=== PATIENT | male | born 1940 | race Caucasian/White ===

== ENCOUNTER 2018-11-02 02:52 | Inpatient (IN) | payer MEDICARE ==
--- NOTE | 2018-11-02 03:05 | ED ---
Chest Pain HPI - General Chief Complaint: Chest Pain Stated Complaint: Chest Pain Time Seen by Provider: 11/02/18 03:02 Source: patient Limitations: no limitations - History of Present Illness Initial Comments: Josias Orozco is a pleasant 77 yo male with PMH of CAD s/p CABG x2 vessels >10 years ago. Patient states that yesterday he was in his usual state of health. At approximately 1 AM he woke from sleeping with a sharp pain in his left chest. Patient reports he took 4 ibuprofen for the pain which improved the pain slightly answered to his blood pressure noted that was mildly elevated at which time he decided to come to the ER before she got any worse. Patient reports that he had similar symptoms in June, he developed chest pain and a progressively worsened patient reports that when he arrived at the emergency department he had a blood pressure of greater than 2:30 systolic and was advised he may be having a heart attack. Patient reports that once his pain was controlled his blood pressure improved, he subsequently underwent a cardiac cath and was advised that he likely did not have a heart attack. Patient reports that he is continued to be compliant with his home medications including daily aspirin. Patient reports the pain today began without provocation, woke him from sleep, was associated with some mild shortness of breath which has resolved, he's had no cough or recent fevers chills nausea or vomiting. - Related Data Home Medications Medication Instructions Recorded Confirmed Atorvastatin Calcium [Lipitor] 40 mg PO DAILY 01/11/14 05/28/16 Aspirin EC [Ecotrin Low Dose] 81 mg PO DAILY 01/23/16 05/28/16 HYDROcodone/APAP 5-325MG [Jefferson 1 tab PO Q4H PRN 05/18/16 05/28/16 5-325] amLODIPine BESYLATE [Norvasc] 5 mg PO DAILY@1800 05/18/16 05/28/16 Previous Rx's Medication Instructions Recorded Enalapril [Vasotec] 20 mg PO HS #0 05/20/16 Isosorbide Mononitrate ER [Imdur] 60 mg PO DAILY #30 tab.er.24h 05/20/16 Metoprolol Tartrate 25 mg PO BID #60 tablet 05/20/16 Gabapentin [Neurontin] 100 mg PO TID #50 cap 05/22/16 HYDROcodone/APAP 7.5-325MG [Jefferson 1 tab PO Q4H PRN #20 tab 05/22/16 7.5-325] valACYclovir HCL [Valtrex] 1,000 mg PO TID #15 tablet 05/22/16 Allergies Allergy/AdvReac Type Severity Reaction Status Date / Time No Known Allergies Allergy Verified 11/02/18 02:59 Review of Systems ROS Statement: Those systems with pertinent positive or pertinent negative responses have been documented in the HPI. ROS Other: All systems not noted in ROS Statement are negative. EKG Findings - EKG Comments: EKG Findings:: EKG was obtained at 3:05 AM, rate of 69 rhythm is sinus there is a normal axis there is a prolonged DC at 276, QRS is 124 QTC is 482 there are no acute ST elevations or depressions or no evidence of acute ischemia or infarction. This is a sinus rhythm with first-degree AV block. Past Medical History Past Medical History: Coronary Artery Disease (CAD), Chest Pain / Angina, CVA/TIA, Hyperlipidemia, Hypertension, Osteoarthritis (OA), Renal Disease Additional Past Medical History / Comment(s): Nephrolithiasis, hematuria, mild renal dysfunction-Dr. Rivera managing, 08/2015 TIA, History of Any Multi-Drug Resistant Organisms: None Reported Past Surgical History: Cardiac Valve Replacement, Coronary Bypass/CABG, Heart Catheterization, Orthopedic Surgery, Tonsillectomy Additional Past Surgical History / Comment(s): 01/2016 penile implant, 08/2015 cardiac cath with no intervention, 2007 mitral/aortic valve replacement with 2 vessel bypass, cystoscopy with stone extraction, lumbar disc sx, colonoscopy, R hand index finger amputation, sinus surgery. Past Anesthesia/Blood Transfusion Reactions: No Reported Reaction Past Psychological History: No Psychological Hx Reported Smoking Status: Never smoker Past Alcohol Use History: None Reported Past Drug Use History: None Reported - Past Family History Father Family Medical History: CVA/TIA Mother Family Medical History: Cancer, Congestive Heart Failure (CHF) Additional Family Medical History / Comment(s): Mother had colon cancer. General Exam - General Exam Comments Initial Comments: Physical Exam GENERAL: Patient is well-developed and well-nourished. Patient is nontoxic and well- hydrated and is in no distress. HENT: Normocephalic, Atraumatic. EYES: PERRL, EOMI PULMONARY: Unlabored respirations. No audible rales rhonchi or wheezing was noted. CARDIOVASCULAR: There is a regular rate and rhythm without any murmurs gallops or rubs. Well-healed sternotomy scar consistent with history of CABG ABDOMEN: Soft and nontender with normal bowel sounds. SKIN: Skin is clear with no lesions or rashes and otherwise unremarkable. : Deferred NEUROLOGIC: Patient is alert and oriented x3. Moving all extremities spontaneously MUSCULOSKELETAL: Normal extremities with adequate strength and full range of motion. No lower extremity swelling or edema. No calf tenderness. Partial amputation of right index finger well-healed PSYCHIATRIC: Normal psychiatric evaluation. Limitations: no limitations Limitations: no limitations Course Vital Signs 11/02/18 11/02/18 11/02/18 02:55 03:09 04:00 Temperature 97.5 F L Pulse Rate 69 61 Respiratory 16 18 Rate Blood Pressure 167/90 O2 Sat by Pulse 98 96 95 Oximetry 11/02/18 05:00 Temperature Pulse Rate 55 L Respiratory 13 Rate Blood Pressure 143/80 O2 Sat by Pulse 95 Oximetry Chest Pain ABUNDIO - ABUNDIO Ferrara is a 77-year-old gentleman with a history of CAD status post CABG who presents to the emergency department today for evaluation of anal woke him from sleep EKG appears nonischemic given the risk factors for cardiac workup was initiated patient's troponin is elevated review of previous visits indicate the patient has had a mildly elevated troponin the past however this is slightly higher given as the patient will be admitted on a heparin drip for further evaluation by cardiology Heart score - 7 - LIZA Score Age > 65: (1) Yes 3 or more CAD Risk Factors: (1) Yes Aspirin use within the Past 7 Days: (1) Yes Elevated Cardiac Markers: (1) Yes ST Deviation Greater than 0.5mm: (0) No Disposition Clinical Impression: CAD (coronary artery disease), Hx of CABG, S/P AVR, H/O mitral valve repair, NSTEMI (non-ST elevated myocardial infarction) Disposition: ADMITTED IP TO THIS HOSP Condition: Serious Is patient prescribed a controlled substance at d/c from ED?: No
[2018-11-02 03:32] LABS: Basophils % (A) 1 %; Eosinophils # (A) 0.1 k/uL (0-0.7); Eosinophils % (A) 2 %; HCT 40.3 % (39.0-53.0); HGB 13.6 gm/dL (13.0-17.5); Lymphocytes # (A) 1.9 k/uL (1.0-4.8); Lymphocytes % (A) 35 %; MCH 31.8 pg (25.0-35.0); MCHC 33.7 g/dL (31.0-37.0); MCV 94.5 fL (80.0-100.0); Mean Platelet Volume 7.2; Monocytes # (A) 0.4 k/uL (0-1.0); Monocytes % (A) 7 %; Neutrophils # (A) 2.8 k/uL (1.3-7.7); Neutrophils % (A) 52 %; Platelet Count 145 k/uL (150-450); RBC 4.27 m/uL (4.30-5.90); WBC 5.3 k/uL (3.8-10.6)
[2018-11-02 03:51] LABS: Albumin 4.3 g/dL (3.5-5.0); Calcium 9.2 mg/dL (8.4-10.2); Magnesium 2.1 mg/dL (1.6-2.3); Potassium 4.2 mmol/L (3.5-5.1); Total Bilirubin 0.9 mg/dL (0.2-1.3); Total Protein 7.2 g/dL (6.3-8.2)
--- NOTE | 2018-11-02 03:51 | XR ---
EXAM: XR Chest, 2 Views CLINICAL HISTORY: Chest Pain TECHNIQUE: Frontal and lateral views of the chest. COMPARISON: May 28, 2016. FINDINGS: Enlarged cardiac silhouette without evidence of failure or edema. Prosthetic cardiac valve. Tortuous/ectatic thoracic aorta with atherosclerotic disease. Sternotomy wires and mediastinal clips. Low lung volumes with bibasilar atelectasis. No large pleural effusions. Senescent changes. Degenerative changes in the thoracic spine. IMPRESSION: Overall, stable exam. Enlarged cardiac silhouette without edema or failure. Bibasilar atelectasis. No large pleural effusions.
[2018-11-02 03:52] LABS: INR 0.9 (<1.2); Partial Thromboplastin Time 23.1 sec (22.0-30.0); Prothrombin Time 9.9 sec (9.0-12.0)
[2018-11-02] MEDS ORDERED: HEPARIN SODIUM,PORCINE 5,000 UNIT/ML 1 ML VIAL IV PRN (04:33)
[2018-11-02] MEDS ORDERED: NITROGLYCERIN SL TABS 0.4 MG TAB SUBLINGUAL PRN (04:33)
[2018-11-02] MEDS ORDERED: HEPARIN SODIUM,PORCINE 5,000 UNIT/ML 1 ML VIAL IV ONE (04:33)
[2018-11-02] MEDS: HEPARIN SOD,PORK IN 0.45% NACL 25,000 UNIT in 0.45% NACL 1 250ML.BAG IV SCH (05:00)
[2018-11-02] MEDS ORDERED: ASPIRIN 81 MG PO STA (05:21)
[2018-11-02 05:38] LABS: Basophils % (A) 1 %; Eosinophils # (A) 0.1 k/uL (0-0.7); Eosinophils % (A) 2 %; HCT 40.2 % (39.0-53.0); HGB 13.3 gm/dL (13.0-17.5); Lymphocytes # (A) 1.6 k/uL (1.0-4.8); Lymphocytes % (A) 32 %; MCH 31.9 pg (25.0-35.0); MCHC 33.2 g/dL (31.0-37.0); MCV 96.3 fL (80.0-100.0); Mean Platelet Volume 7.5; Monocytes # (A) 0.3 k/uL (0-1.0); Monocytes % (A) 7 %; Neutrophils # (A) 2.8 k/uL (1.3-7.7); Neutrophils % (A) 57 %; Platelet Count 144 k/uL (150-450); RBC 4.17 m/uL (4.30-5.90); RDW 13.9 % (11.5-15.5)
[2018-11-02 05:59] LABS: Partial Thromboplastin Time 63.4 sec (22.0-30.0); Prothrombin Time 10.9 sec (9.0-12.0)
[2018-11-02] MEDS: ATORVASTATIN 40 MG TAB PO SCH (08:45)
[2018-11-02] MEDS: amLODIPine 10 MG TAB PO SCH (08:45)
[2018-11-02] MEDS: METOPROLOL TARTRATE 25 MG TAB PO SCH (08:45)
[2018-11-02] MEDS ORDERED: NON-FORMULARY DRUG (Enalapril 20 MG) PO SCH (09:00)
--- NOTE | 2018-11-02 10:26 | P.HPIM ---
History of Present Illness This is a pleasant 77 years old male with past medical history of coronary artery disease, status post CABG, CVA/TIA, hyperlipidemia, hypertension, osteoarthritis, nephrolithiasis, hematuria, mild renal dysfunction that he follows with Dr. Rivera, status post mitral/aortic valve replacement in 2007, lumbar disc disease. He is a patient of Dr. Dominique. Presents because of chest pain of one-day duration. 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 He had similar chest pain last June further when he had normal cardiac cath in [place]. Also he have some dyspnea but thus been resolved. Currently patient is chest pain-free after starting therapy with heparin drip and aspirin Vitals are stable, somewhat bradycardia. CBC is unremarkable. Creatinine is 1.4, compared to baseline of 1.2-1.5. His troponins are elevated at 0.05 and 0.05. EKG showing sinus rhythm at 69 with first-degree AV block, No significant ST-T changes. Chest x-ray: No CHF. Patient already was started on aspirin and heparin drip Review of Systems CONSTITUTIONAL: No fever, no malaise, no fatigue. HEENT: No recent visual problems or hearing problems. Denied any sore throat. CARDIOVASCULAR: No orthopnea, PND, no palpitations, no syncope. PULMONARY: No shortness of breath, no cough, no hemoptysis. GASTROINTESTINAL: No diarrhea, no nausea, no vomiting, no abdominal pain. Normoactive bowel sounds. NEUROLOGICAL: No headaches, no weakness, no numbness. HEMATOLOGICAL: Denies any bleeding or petechiae. GENITOURINARY: Denies any burning micturition, frequency, or urgency. MUSCULOSKELETAL/RHEUMATOLOGICAL: Denies any joint pain, swelling, or any muscle pain. ENDOCRINE: Denies any polyuria or polydipsia. Past Medical History Past Medical History: Coronary Artery Disease (CAD), Chest Pain / Angina, CVA/TIA, Hyperlipidemia, Hypertension, Osteoarthritis (OA), Renal Disease Additional Past Medical History / Comment(s): Nephrolithiasis, hematuria, mild renal dysfunction-Dr. Rivera managing, 08/2015 TIA, History of Any Multi-Drug Resistant Organisms: None Reported Past Surgical History: Cardiac Valve Replacement, Coronary Bypass/CABG, Heart Catheterization, Orthopedic Surgery, Tonsillectomy Additional Past Surgical History / Comment(s): 01/2016 penile implant, 08/2015 cardiac cath with no intervention, 2007 mitral/aortic valve replacement with 2 vessel bypass, cystoscopy with stone extraction, lumbar disc sx, colonoscopy, R hand index finger amputation, sinus surgery. Past Anesthesia/Blood Transfusion Reactions: No Reported Reaction Past Psychological History: No Psychological Hx Reported Smoking Status: Never smoker Past Alcohol Use History: None Reported Past Drug Use History: None Reported - Past Family History Father Family Medical History: CVA/TIA Mother Family Medical History: Cancer, Congestive Heart Failure (CHF) Additional Family Medical History / Comment(s): Mother had colon cancer. Medications and Allergies Home Medications Medication Instructions Recorded Confirmed Type Atorvastatin Calcium [Lipitor] 40 mg PO DAILY 01/11/14 11/02/18 History Aspirin EC [Ecotrin Low Dose] 81 mg PO DAILY 01/23/16 11/02/18 History Enalapril [Vasotec] 20 mg PO DAILY 11/02/18 11/02/18 History Metoprolol Tartrate 25 mg PO DAILY 11/02/18 11/02/18 History amLODIPine [Norvasc] 10 mg PO DAILY 11/02/18 11/02/18 History Allergies Allergy/AdvReac Type Severity Reaction Status Date / Time No Known Allergies Allergy Verified 11/02/18 07:40 Physical Exam Vitals: Vital Signs Temp Pulse Resp BP Pulse Ox 11/02/18 06:00 56 L 14 123/68 95 11/02/18 05:00 55 L 13 143/80 95 11/02/18 04:00 61 18 95 11/02/18 03:09 96 11/02/18 02:55 97.5 F L 69 16 167/90 98 Intake and Output 11/01/18 11/02/18 11/02/18 22:59 06:59 14:59 Other: Weight 99.79 kg GENERAL: The patient is alert and oriented x3, not in any acute distress. Well developed, well nourished. HEENT: Pupils are round and equally reacting to light. EOMI. No scleral icterus. No conjunctival pallor. Normocephalic, atraumatic. No pharyngeal erythema. No thyromegaly. CARDIOVASCULAR: S1 and S2 present. No murmurs, rubs, or gallops. PULMONARY: Chest is clear to auscultation, no wheezing or crackles. ABDOMEN: Soft, nontender, nondistended, normoactive bowel sounds. No palpable organomegaly. MUSCULOSKELETAL: No joint swelling or deformity. EXTREMITIES: No cyanosis, clubbing, or pedal edema. NEUROLOGICAL: Gross neurological examination did not reveal any focal deficits. SKIN: No rashes. Results CBC & Chem 7: 11/02/18 04:59 11/02/18 03:20 Labs: Abnormal Lab Results - Last 24 Hours (Table) 11/02/18 11/02/18 11/02/18 Range/Units 03:20 03:20 03:20 RBC 4.27 L (4.30-5.90) m/uL Plt Count 145 L (150-450) k/uL APTT (22.0-30.0) sec Chloride 108 H (98-107) mmol/L BUN 30 H (9-20) mg/dL Creatinine 1.41 H (0.66-1.25) mg/dL Troponin I 0.054 H* (0.000-0.034) ng/mL 11/02/18 11/02/18 11/02/18 Range/Units 04:59 04:59 04:59 RBC 4.17 L (4.30-5.90) m/uL Plt Count 144 L (150-450) k/uL APTT 63.4 H (22.0-30.0) sec Chloride (98-107) mmol/L BUN (9-20) mg/dL Creatinine (0.66-1.25) mg/dL Troponin I 0.050 H* (0.000-0.034) ng/mL Assessment and Plan Assessment: Non-STEMI History of coronary artery disease, status post CABG History of mitral and aortic valve replacement Chronic kidney disease, stage III CVA/TIA Hyperlipidemia Essential hypertension History of osteoarthritis History of nephrolithiasis and hematuria History of lumbar disc disease Plan: This is a pleasant 77 years old male who presents because of non-STEMI. Continue with aspirin, heparin drip. And ask for Cardiologic consult. Labs and medication were reviewed.. Continue same treatment. Continue with sy mptomatic treatment. Resume home medication. Monitor lytes and vitals. DVT and GI prophylaxis. Further recommendations of the clinical course of the patient DVT prophylaxis: Subcutaneous heparin GI Prophylaxis: Pepcid PT/OT: Pending Prognosis is guarded
--- NOTE | 2018-11-02 10:40 | P.CRDCN ---
History of Present Illness Consult date: 11/02/18 Chief complaint: Chest pain History of present illness: This is a pleasant 77-year-old gentleman who sees Dr. RERE Arroyo in the office on regular basis with a past medical history significant for coronary artery disease and status post coronary artery bypass grafting with MILLER to LAD, status post aortic valve replacement, mitral valve repair, as well as multiple comorbid conditions, presented to the hospital complaining of chest discomfort. He was in his usual state of health until last night when he was sleeping and the chest discomfort woke him up from sleep. Its a dull kind of discomfort, in the mid of the chest, without any radiation, and without any associated symptoms. The patient was ruled in for acute coronary syndrome. The troponin came in to be slightly abnormal. A similar presentation was in 2015 when a heart catheterization was performed at that point and revealed patent MILLER to LAD without any evidence of any obstructive coronary artery disease. Beside that similar presentation was June 2018 when he was in [place] and presented with chest discomfort and underwent a heart catheterization as well and he was t old that no need for stent at that point. I am going to consider conservative medical approach on him. He I am going to add oral nitrates the current medical regimen. Obtain an echocardiogram was Liss naranjo And follow-up with the patient. No need for any invasive procedure at this point in the absence of any chest pain or chest discomfort and the absence of any ischemic ST or T-wave abnormalities on the EKG. Past Medical History Past Medical History: Coronary Artery Disease (CAD), Chest Pain / Angina, CVA/TIA, Hyperlipidemia, Hypertension, Osteoarthritis (OA), Renal Disease Additional Past Medical History / Comment(s): Nephrolithiasis, hematuria, mild renal dysfunction-Dr. Rivera managing, 08/2015 TIA, History of Any Multi-Drug Resistant Organisms: None Reported Past Surgical History: Cardiac Valve Replacement, Coronary Bypass/CABG, Heart Catheterization, Orthopedic Surgery, Tonsillectomy Additional Past Surgical History / Comment(s): 01/2016 penile implant, 08/2015 cardiac cath with no intervention, 2007 mitral/aortic valve replacement with 2 vessel bypass, cystoscopy with stone extraction, lumbar disc sx, colonoscopy, R hand index finger amputation, sinus surgery. Past Anesthesia/Blood Transfusion Reactions: No Reported Reaction Past Psychological History: No Psychological Hx Reported Smoking Status: Never smoker Past Alcohol Use History: None Reported Past Drug Use History: None Reported - Past Family History Father Family Medical History: CVA/TIA Mother Family Medical History: Cancer, Congestive Heart Failure (CHF) Additional Family Medical History / Comment(s): Mother had colon cancer. Medications and Allergies Home Medications Medication Instructions Recorded Confirmed Type Atorvastatin Calcium [Lipitor] 40 mg PO DAILY 01/11/14 11/02/18 History Aspirin EC [Ecotrin Low Dose] 81 mg PO DAILY 01/23/16 11/02/18 History Enalapril [Vasotec] 20 mg PO DAILY 11/02/18 11/02/18 History Metoprolol Tartrate 25 mg PO DAILY 11/02/18 11/02/18 History amLODIPine [Norvasc] 10 mg PO DAILY 11/02/18 11/02/18 History Allergies Allergy/AdvReac Type Severity Reaction Status Date / Time No Known Allergies Allergy Verified 11/02/18 07:40 Physical Exam Vitals: Vital Signs Temp Pulse Pulse Resp BP BP Pulse Ox 11/02/18 08:30 97.0 F L 60 18 140/85 95 11/02/18 06:00 56 L 14 123/68 95 11/02/18 05:00 55 L 13 143/80 95 11/02/18 04:00 61 18 95 11/02/18 03:09 96 11/02/18 02:55 97.5 F L 69 16 167/90 98 Intake and Output 11/01/18 11/02/18 11/02/18 22:59 06:59 14:59 Output Total 350 Balance -350 Output: Urine 350 Other: Voiding Method Toilet Weight 99.79 kg - Constitutional General appearance: no acute distress - Respiratory Respiratory: bilateral: CTA - Cardiovascular Rhythm: regular Heart sounds: normal: S1, S2 Abnormal Heart Sounds: systolic murmur Results 11/02/18 04:59 11/02/18 03:20 Cardiac Enzymes 11/02/18 11/02/18 11/02/18 Range/Units 03:20 03:20 04:59 AST 27 (17-59) U/L Troponin I 0.054 H* 0.050 H* (0.000-0.034) ng/mL Coagulation 11/02/18 11/02/18 Range/Units 03:20 04:59 PT 9.9 10.9 (9.0-12.0) sec APTT 23.1 63.4 H (22.0-30.0) sec CBC 11/02/18 11/02/18 Range/Units 03:20 04:59 WBC 5.3 5.0 (3.8-10.6) k/uL RBC 4.27 L 4.17 L (4.30-5.90) m/uL Hgb 13.6 13.3 (13.0-17.5) gm/dL Hct 40.3 40.2 (39.0-53.0) % Plt Count 145 L 144 L (150-450) k/uL Comprehensive Metabolic Panel 11/02/18 Range/Units 03:20 Sodium 140 (137-145) mmol/L Potassium 4.2 (3.5-5.1) mmol/L Chloride 108 H (98-107) mmol/L Carbon Dioxide 23 (22-30) mmol/L BUN 30 H (9-20) mg/dL Creatinine 1.41 H (0.66-1.25) mg/dL Glucose 86 (74-99) mg/dL Calcium 9.2 (8.4-10.2) mg/dL AST 27 (17-59) U/L ALT 23 (21-72) U/L Alkaline Phosphatase 118 (38-126) U/L Total Protein 7.2 (6.3-8.2) g/dL Albumin 4.3 (3.5-5.0) g/dL Current Medications Generic Name Dose Route Start Last Admin Trade Name Freq PRN Reason Stop Dose Admin Amlodipine Besylate 10 mg 11/02/18 09:00 11/02/18 08:45 Norvasc PO 10 mg DAILY [facility] Administration Aspirin 325 mg 11/03/18 09:00 Aspirin PO DAILY [facility] Atorvastatin Calcium 40 mg 11/02/18 09:00 11/02/18 08:45 Lipitor PO 40 mg DAILY [facility] Administration Heparin Sodium (Porcine) 0 unit 11/02/18 04:33 Heparin IV PER PROTOCOL PRN Low PTT Protocol Heparin Sodium/Sodium Chloride 250 mls @ 10 mls/hr 11/02/18 04:45 11/02/18 05:00 25,000 unit/ Sodium Chloride IV 1,000 units/hr .Q24H [facility] 10 mls/hr Administration Protocol Metoprolol Tartrate 25 mg 11/02/18 09:00 11/02/18 08:45 Lopressor PO 25 mg DAILY [facility] Administration Nitroglycerin 0.4 mg 11/02/18 04:33 Nitrostat SUBLINGUAL Q5M PRN Chest Pain Intake and Output 11/01/18 11/02/18 11/02/18 22:59 06:59 14:59 Output Total 350 Balance -350 Output: Urine 350 Other: Voiding Method Toilet Weight 99.79 kg 11/02/18 04:59 11/02/18 03:20 Assessment and Plan Assessment: Assessment #1 atypical chest discomfort #2 mildly abnormal cardiac enzymes #3 CAD and prior CABG #4 status post aortic valve replacement #5 status post mitral valve repair Plan #1 consider conservative medical approach #2 add oral nitrates to the current medical regimen #3 obtain an echocardiogram was Doppler #4 follow-up with the patient
--- NOTE | 2018-11-02 13:37 | ECHOF ---
Referral Reason: MEASUREMENTS -------- HEIGHT: 175.3 cm WEIGHT: 99.8 kg BP: RVIDd: 3.4 cm (< 3.3) IVSd: 2.0 cm (0.6 - 1.1) LVIDd: 2.6 cm (3.9 - 5.3) LVPWd: 1.9 cm (0.6 - 1.1) IVSs: 2.2 cm LVIDs: 1.7 cm LVPWs: 2.0 cm LAESV Index (A-L): 45.05 ml/m Ao Diam: 3.6 cm (2.0 - 3.7) AV Cusp: 1.5 cm (1.5 - 2.6) LA Diam: 4.1 cm (2.7 - 3.8) MV EXCURSION: 7.983 mm (> 18.000) MV EF SLOPE: 17 mm/s (70 - 150) EPSS: 0.6 cm MV E Gio: 1.32 m/s MV DecT: 407 ms MV A Gio: 1.25 m/s MV E/A Ratio: 1.06 AV maxP.99 mmHg AV meanP.69 mmHg RAP: 5.00 mmHg RVSP: 31.78 mmHg FINDINGS -------- Resting bradycardia (HR<60bpm). This was a technically good study. The left ventricular size is normal. There is severe concentric left ventricular hypertrophy. Ove rall left ventricular systolic function is normal with, an EF between 55 - 60 %. The right ventricle is mildly enlarged. LA is severely dilated >40 ml/m2 The right atrial size is normal. Interatrial and interventricular septum intact. Peak/mean gradient across the Aortic Valve is 52.99mmHg / 30.69mmHg. 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 The mitral valve leaflets are mildly thickened. Mild mitral regurgitation is present. Mitral ring annulloplasty is in place. Mild tricuspid regurgitation present. The right ventricular systolic pressure, as measured by Doppl er, is 31.78mmHg. There is no pulmonic regurgitation present. The aortic root size is normal. Normal inferior vena cava with normal inspiratory collapse consistent with estimated right atrial pre ssure of 5 mmHg. There is no pericardial effusion. CONCLUSIONS -------- 1. Resting bradycardia (HR<60bpm). 2. This was a technically good study. 3. The left ventricular size is normal. 4. There is severe concentric left ventricular hypertrophy. 5. Overall left ventricular systolic function is normal with, an EF between 55 - 60 %. 6. The right ventricle is mildly enlarged. 7. LA is severely dilated >40 ml/m2 8. The right atrial size is normal. 9. Interatrial and interventricular septum intact. 10. Peak/mean gradient across the Aortic Valve is 52.99mmHg / 30.69mmHg. 11. 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 12. The mitral valve leaflets are mildly thickened. 13. Mild mitral regurgitation is present. 14. Mitral ring annulloplasty is in place. 15. Mild tricuspid regurgitation present. 16. The right ventricular systolic pressure, as measured by Doppler, is 31.78mmHg. 17. There is no pulmonic regurgitation present. 18. The aortic root size is normal. 19. Normal inferior vena cava with normal inspiratory collapse consistent with estimated right atrial pressure of 5 mmHg. 20. There is no pericardial effusion. [employer] CULTURIST: Nicole Fermin [facility]
[2018-11-02] MEDS ORDERED: traMADol 50 MG TAB PO STA (20:28)
[2018-11-03] MEDS: PANTOPRAZOLE 40 MG/10 ML VIAL IVP SCH ×2 (00:32→07:55)
[2018-11-03 02:58] LABS: Cholesterol 145 mg/dL (<200); HDL Cholesterol 41 mg/dL (40-60); LDL Cholesterol,Calculated 86 mg/dL (0-99); Triglycerides 89 mg/dL (<150)
[2018-11-03] MEDS: HEPARIN SOD,PORK IN 0.45% NACL 25,000 UNIT in 0.45% NACL 1 250ML.BAG IV SCH (05:58)
[2018-11-03] MEDS: amLODIPine 10 MG TAB PO SCH (07:55)
[2018-11-03] MEDS: ATORVASTATIN 40 MG TAB PO SCH (07:55)
[2018-11-03] MEDS: METOPROLOL TARTRATE 25 MG TAB PO SCH (07:55)
[2018-11-03] MEDS: ISOSORBIDE MONONITRATE ER 30 MG TAB.ER.24H PO SCH (07:55)
[2018-11-03] MEDS: ASPIRIN 325 MG TAB PO SCH (07:55)
--- NOTE | 2018-11-03 12:21 | P.PN ---
Subjective Progress Note Date: 11/03/18 Principal diagnosis: Atypical chest pain This is a pleasant 77-year-old gentleman who sees Dr. RERE Arroyo in the office on regular basis with a past medical history significant for coronary artery disease and status post coronary artery bypass grafting with MILLER to LAD, status post aortic valve replacement, mitral valve repair, as well as multiple comorbid conditions, presented to the hospital complaining of chest discomfort. He was in his usual state of health until last night when he was sleeping and the chest discomfort woke him up from sleep. Its a dull kind of discomfort, in the mid of the chest, without any radiation, and without any associated symptoms. The patient was ruled in for acute coronary syndrome. The troponin came in to be slightly abnormal. A similar presentation was in 2015 when a heart catheterization was performed at that point and revealed patent MILLER to LAD without any evidence of any obstructive coronary artery disease. Beside that similar presentation was June 2018 when he was in [place] and presented with chest discomfort and underwent a heart catheterization as well and he was told that no need for stent at that point. On follow-up with the patient today, he still have atypical but very mild chest discomfort. Yesterday I did add oral nitrates to her current medical regimen. The echocardiogram revealed normal LV function. He stated that he does have an abdominal aortic aneurysm and he is quite concerned about it. I am going to obtain a CT scan of the abdomen and pelvis without contrast. Objective - Vital Signs Vital signs: Vital Signs Temp 96.6 F L 11/03/18 08:00 Pulse 65 11/03/18 08:00 Resp 16 11/03/18 08:00 BP 144/66 11/03/18 08:00 Pulse Ox 93 L 11/03/18 08:00 Intake & Output 11/02/18 11/03/18 11/03/18 18:59 06:59 18:59 Intake Total 438 172.0 230 Output Total 600 Balance -162 172.0 230 Weight 98.5 kg Intake: Intake, IV Titration 78 172.0 Amount Heparin Sod,Pork in 0.45% 78 172.0 NaCl 25,000 unit In 0.45 % NaCl 1 250ml.bag @ 10 mls/hr IV .Q24H [facility] Rx#: [id number] Oral 360 230 Output: Urine 600 Other: Voiding Method Toilet Toilet # Voids 1 1 - Constitutional General appearance: Present: no acute distress - Respiratory Respiratory: bilateral: CTA - Cardiovascular Rhythm: regular Heart sounds: normal: S1, S2 Abnormal Heart Sounds: Present: systolic murmur - Labs CBC & Chem 7: 11/02/18 04:59 11/02/18 03:20 Labs: Abnormal Lab Results - Last 24 Hours (Table) 11/02/18 11/02/18 Range/Units 11:44 19:05 APTT 43.3 H 65.3 H (22.0-30.0) sec Assessment and Plan Assessment: Assessment #1 atypical chest discomfort #2 mildly abnormal cardiac enzymes #3 CAD and prior CABG #4 status post aortic valve replacement #5 status post mitral valve repair Plan #1 consider conservative medical approach #2 obtain a computed tomography scan of the abdomen and pelvis #3 the patient can be discharged home.
--- NOTE | 2018-11-03 13:52 | CT ---
EXAMINATION TYPE: CT abdomen pelvis wo con DATE OF EXAM: 11/03/2018 COMPARISON: NONE HISTORY: AAA CT DLP: 819.5 mGycm Automated exposure control for dose reduction was used. FINDINGS: There is some dependent atelectasis in the dependent portions of the lungs. There is no ple ural or pericardial fluid. The heart is enlarged. There is calcification of the mitral annulus as wel l as coronary arteries. There is a partial eventration of the right hemidiaphragm. There is colonic interposition on the righ t. The liver is enlarged measuring 20 cm. The spleen and gallbladder are normal. Both adrenal glands are normal. There is a 2 mm, nonobstructing calculus in the anterior lower pole calyx of the right kidney. There is a larger, 1.5 cm nonobstructing stone in the lower pole of the left kidney. Limited views of the pancreas are unremarkable. There is moderate atheromatous calcification of the visualized arterial tree. There is no evidence of an aortic aneurysm. There is no evidence of an iliac aneurysm. There is no significant retroperitone al, iliac or inguinal adenopathy. There is a penile reservoir within the pelvis. The bladder is not distended. There is no significant diverticular change and there is no radiographic evidence of diverticulitis. The appendix is normal. Small bowel loops are normal in caliber. There is no free air and no free fluid identified. There are sclerotic foci in both femoral heads, likely representing bone islands. There is degenerati ve change in the lower lumbar facets there is hypertrophic spondylosis within the lower dorsal and up per lumbar spines. IMPRESSION: 1. BILATERAL NONOBSTRUCTING NEPHROLITHIASIS. 2. NO EVIDENCE OF AN AORTIC ANEURYSM. 3. HEPATOMEGALY. 4. CARDIOMEGALY. 5. DEGENERATIVE CHANGES WITHIN THE SPINE.
--- NOTE | 2018-11-03 14:47 | P.PN ---
Subjective This is a pleasant 77 years old male with past medical history of coronary artery disease, status post CABG, CVA/TIA, hyperlipidemia, hypertension, osteoarthritis, nephrolithiasis, hematuria, mild renal dysfunction that he follows with Dr. Rivera, status post mitral/aortic valve replacement in 2007, lumbar disc disease. He is a patient of Dr. Dominique. Presents because of chest pain of one-day duration. Pain started pe manager and with the patient up from sleep, is on the left side nonradiating, nonspecific in character, about 8/10 in severity. He had similar chest pain last June when he had normal cardiac cath in [place]. Also he have some dyspnea but thus been resolved. Currently patient is chest pain-free after starting therapy with heparin drip and aspirin Vitals are stable, somewhat bradycardia. CBC is unremarkable. Creatinine is 1.4, compared to baseline of 1.2-1.5. His troponins are elevated at 0.05 and 0.05. EKG showing sinus rhythm at 69 with first-degree AV block, No significant ST-T changes. Chest x-ray: No CHF. Patient already was started on aspirin and heparin drip 11/03/2018 Patient states that his chest pain feels better. No dyspnea no coughing. Echocardiogram was showing normal left ventricular function. Survey Research Associate adjusted his medication and the CAT scan of the abdomen and pelvis without contrast for possible abdominal aneurysm, showing bilateral nonobstructing kidney stones with no evidence of aortic aneurysm, hepatomegaly and cardiomegaly. Patient today is complaining of from his left flank pain, similar to his kidney stone pain which she had a 1-2 weeks ago. Continue with pain management Objective - Vital Signs Vital signs: Vital Signs Temp 96.9 F L 11/03/18 12:00 Pulse 46 L 11/03/18 12:00 Resp 16 11/03/18 12:00 BP 105/60 11/03/18 12:00 Pulse Ox 95 11/03/18 12:00 Intake & Output 11/02/18 11/03/18 11/03/18 18:59 06:59 18:59 Intake Total 438 172.0 230 Output Total 600 Balance -162 172.0 230 Weight 98.5 kg Intake: Intake, IV Titration 78 172.0 Amount Heparin Sod,Pork in 0.45% 78 172.0 NaCl 25,000 unit In 0.45 % NaCl 1 250ml.bag @ 10 mls/hr IV .Q24H [facility] Rx#: [id number] Oral 360 230 Output: Urine 600 Other: Voiding Method Toilet Toilet # Voids 1 2 - Exam GENERAL: The patient is alert and oriented x3, not in any acute distress. Well developed, well nourished. HEENT: Pupils are round and equally reacting to light. EOMI. No scleral icterus. No conjunctival pallor. Normocephalic, atraumatic. No pharyngeal erythema. No thyromegaly. CARDIOVASCULAR: S1 and S2 present. No murmurs, rubs, or gallops. PULMONARY: Chest is clear to auscultation, no wheezing or crackles. -ABDOMEN: Soft, nontender, nondistended, normoactive bowel sounds. No palpable organomegaly. Left costovertebral angle tenderness MUSCULOSKELETAL: No joint swelling or deformity. EXTREMITIES: No cyanosis, clubbing, or pedal edema. NEUROLOGICAL: Gross neurological examination did not reveal any focal deficits. SKIN: No rashes. - Labs CBC & Chem 7: 11/02/18 04:59 11/02/18 03:20 Labs: Abnormal Lab Results - Last 24 Hours (Table) 11/02/18 Range/Units 19:05 APTT 65.3 H (22.0-30.0) sec Assessment and Plan Assessment: Non-STEMI, her dosage evaluated patient and to continue with medical management. Normal LV function Bilateral nephrolithiasis, nonobstructing. Flank pain secondary to above History of coronary artery disease, status post CABG History of mitral and aortic valve replacement Chronic kidney disease, stage III CVA/TIA Hyperlipidemia Essential hypertension History of osteoarthritis History of nephrolithiasis and hematuria History of lumbar disc disease Plan: This is a pleasant 77 years old male who presents because of non-STEMI. Continue with aspirin. Cardiologic consult. Is appreciated. Also CAT scan shows bilateral kidney stone. Continue with pain management. Continue with ge ntle hydration Labs and medication were reviewed.. Continue same treatment. Continue with symptomatic treatment. Resume home medication. Monitor lytes and vitals. DVT and GI prophylaxis. Further recommendations of the clinical course of the patient DVT prophylaxis: heparin GI Prophylaxis: Pepcid PT/OT: Pending Prognosis is guarded
[2018-11-03] MEDS: DEXTROSE 5%-0.45% NACL 1,000 ML IV SCH (17:15)
[2018-11-04] MEDS: PANTOPRAZOLE 40 MG TABLET PO SCH (05:58)
[2018-11-04] MEDS: HEPARIN SOD,PORK IN 0.45% NACL 25,000 UNIT in 0.45% NACL 1 250ML.BAG IV SCH (05:58)
[2018-11-04] MEDS: METOPROLOL TARTRATE 25 MG TAB PO SCH (08:29)
[2018-11-04] MEDS: ATORVASTATIN 40 MG TAB PO SCH (08:29)
[2018-11-04] MEDS: ISOSORBIDE MONONITRATE ER 30 MG TAB.ER.24H PO SCH (08:29)
[2018-11-04] MEDS: amLODIPine 10 MG TAB PO SCH (08:29)
[2018-11-04] MEDS: ASPIRIN 325 MG TAB PO SCH (08:29)
[2018-11-04 09:01] VITALS: RESP 18
[2018-11-04] MEDS: DEXTROSE 5%-0.45% NACL 1,000 ML IV SCH ×2 (10:51→11:27)
--- NOTE | 2018-11-04 11:26 | P.PN ---
Subjective Progress Note Date: 11/04/18 Principal diagnosis: Atypical chest pain This is a pleasant 77-year-old gentleman who sees Dr. RERE Arroyo in the office on regular basis with a past medical history significant for coronary artery disease and status post coronary artery bypass grafting with MILLER to LAD, status post aortic valve replacement, mitral valve repair, as well as multiple comorbid conditions, presented to the hospital complaining of chest discomfort. He was in his usual state of health until last night when he was sleeping and the chest discomfort woke him up from sleep. Its a dull kind of discomfort, in the mid of the chest, without any radiation, and without any associated symptoms. The patient was ruled in for acute coronary syndrome. The troponin came in to be slightly abnormal. A similar presentation was in 2015 when a heart catheterization was performed at that point and revealed patent MILLER to LAD without any evidence of any obstructive coronary artery disease. Beside that similar presentation was June 2018 when he was in [place] and presented with chest discomfort and underwent a heart catheterization as well and he was told that no need for stent at that point. On follow-up with the patient today, 11/04/2018, the patient is feeling better in terms of chest pain. The echocardiogram revealed normal LV function. From the cardiovascular standpoint of view, he can be discharged home. Objective - Vital Signs Vital signs: Vital Signs Temp 97.2 F L 11/04/18 08:00 Pulse 53 L 11/04/18 08:00 Resp 18 11/04/18 08:00 BP 138/72 11/04/18 08:00 Pulse Ox 96 11/04/18 08:00 Intake & Output 11/03/18 11/04/18 11/04/18 18:59 06:59 18:59 Intake Total 230 1250 580 Balance 230 1250 580 Weight 98.6 kg Intake: Intake, IV Titration 650 200 Amount Dextrose 5%-0.45% NaCl 1, 400 200 000 ml @ 50 mls/hr IV . Q20H [facility] Rx#:[id number] Heparin Sod,Pork in 0.45% 250 NaCl 25,000 unit In 0.45 % NaCl 1 250ml.bag @ 10 mls/hr IV .Q24H [facility] Rx#: [id number] Oral 230 600 380 Other: Voiding Method Toilet # Voids 1 1 1 - Constitutional General appearance: Present: no acute distress - Respiratory Respiratory: bilateral: CTA - Cardiovascular Rhythm: regular Heart sounds: normal: S1, S2 Abnormal Heart Sounds: Present: systolic murmur - Labs CBC & Chem 7: 11/02/18 04:59 11/02/18 03:20 Labs: Abnormal Lab Results - Last 24 Hours (Table) 11/04/18 Range/Units 02:32 APTT 56.4 H (22.0-30.0) sec Assessment and Plan Assessment: Assessment #1 atypical chest discomfort #2 mildly abnormal cardiac enzymes #3 CAD and prior CABG #4 status post aortic valve replacement #5 status post mitral valve repair Plan #1 consider conservative medical approach #2 the patient can be discharged home.
--- NOTE | 2018-11-04 11:28 | P.PN ---
Subjective This is a pleasant 77 years old male with past medical history of coronary artery disease, status post CABG, CVA/TIA, hyperlipidemia, hypertension, osteoarthritis, nephrolithiasis, hematuria, mild renal dysfunction that he follows with Dr. Rivera, status post mitral/aortic valve replacement in 2007, lumbar disc disease. He is a patient of Dr. Dominique. Presents because of chest pain of one-day duration. Pain started early morning babysitter and with the patient up from sleep, is on the left side nonradiating, nonspecific in character, about 8/10 in severity. He had similar chest pain last June further when he had normal cardiac cath in [place]. Also he have some dyspnea but thus been resolved. Currently patient is chest pain-free after starting therapy with heparin drip and aspirin Vitals are stable, somewhat bradycardia. CBC is unremarkable. Creatinine is 1.4, compared to baseline of 1.2-1.5. His troponins are elevated at 0.05 and 0.05. EKG showing sinus rhythm at 69 with first-degree AV block, No significant ST-T changes. Chest x-ray: No CHF. Patient already was started on aspirin and heparin drip 11/03/2018 Patient states that his chest pain feels better. No dyspnea no coughing. Echocardiogram was showing normal left ventricular function. Production Team Member adjusted his medication and the CAT scan of the abdomen and pelvis without contrast for possible abdominal aneurysm, showing bilateral nonobstructing kidney stones with no evidence of aortic aneurysm, hepatomegaly and cardiomegaly. Patient today is complaining of from his left flank pain, similar to his kidney stone pain which she had a 1-2 weeks ago. Continue with pain management 11/04/2018 Patient still have left flank pain, most likely ureteral colic secondary to his 1.5 left kidney stone. He has this pain on and off. He has no more chest pain or dyspnea. Patient has been evaluated and cleared by sap data architect for discharge. Creatinine was 1.4 yesterday were recheck creatinine again today. As well as with check CBC. Patient said he has a urologist but he hasn't seen him for the last 2 years. Objective - Vital Signs Vital signs: Vital Signs Temp 97.2 F L 11/04/18 08:00 Pulse 53 L 11/04/18 08:00 Resp 18 11/04/18 08:00 BP 138/72 11/04/18 08:00 Pulse Ox 96 11/04/18 08:00 Intake & Output 11/03/18 11/04/18 11/04/18 18:59 06:59 18:59 Intake Total 230 1250 580 Balance 230 1250 580 Weight 98.6 kg Intake: Intake, IV Titration 650 200 Amount Dextrose 5%-0.45% NaCl 1, 400 200 000 ml @ 50 mls/hr IV . Q20H [facility] Rx#:[id number] Heparin Sod,Pork in 0.45% 250 NaCl 25,000 unit In 0.45 % NaCl 1 250ml.bag @ 10 mls/hr IV .Q24H [facility] Rx#: [id number] Oral 230 600 380 Other: Voiding Method Toilet # Voids 1 1 1 - Exam GENERAL: The patient is alert and oriented x3, not in any acute distress. Well developed, well nourished. HEENT: Pupils are round and equally reacting to light. EOMI. No scleral icterus. No conjunctival pallor. Normocephalic, atraumatic. No pharyngeal erythema. No thyromegaly. CARDIOVASCULAR: S1 and S2 present. No murmurs, rubs, or gallops. PULMONARY: Chest is clear to auscultation, no wheezing or crackles. -ABDOMEN: Soft, nontender, nondistended, normoactive bowel sounds. No palpable organomegaly. Left costovertebral angle tenderness MUSCULOSKELETAL: No joint swelling or deformity. EXTREMITIES: No cyanosis, clubbing, or pedal edema. NEUROLOGICAL: Gross neurological examination did not reveal any focal deficits. SKIN: No rashes. - Labs CBC & Chem 7: 11/02/18 04:59 11/02/18 03:20 Labs: Abnormal Lab Results - Last 24 Hours (Table) 11/04/18 Range/Units 02:32 APTT 56.4 H (22.0-30.0) sec Assessment and Plan Assessment: Non-STEMI, her dosage evaluated patient and to continue with medical management. Normal LV function Bilateral nephrolithiasis, nonobstructing. Flank pain secondary to above History of coronary artery disease, status post CABG History of mitral and aortic valve replacement Chronic kidney disease, stage III CVA/TIA Hyperlipidemia Essential hypertension History of osteoarthritis History of nephrolithiasis and hematuria History of lumbar disc disease Plan: This is a pleasant 77 years old male who presents because of non-STEMI. Continue with aspirin. Cardiologic consult. Is appreciated. Also CAT scan shows bilateral kidney stone. Continue with pain management. Continue with gentle hydration Labs and medication were reviewed.. Continue same treatment. Continue with symptomatic treatment. Resume home medication. Monitor lytes and vitals. DVT and GI prophylaxis. Further recommendations of the clinical course of the patient DVT prophylaxis: heparin GI Prophylaxis: Pepcid PT/OT: Pending Prognosis is guarded
[2018-11-04 12:02] LABS: Basophils % (A) 1 %; Eosinophils # (A) 0.1 k/uL (0-0.7); Eosinophils % (A) 2 %; HCT 42.8 % (39.0-53.0); Lymphocytes # (A) 1.3 k/uL (1.0-4.8); Lymphocytes % (A) 26 %; MCH 30.7 pg (25.0-35.0); MCHC 32.8 g/dL (31.0-37.0); MCV 93.8 fL (80.0-100.0); Mean Platelet Volume 7.7; Monocytes # (A) 0.3 k/uL (0-1.0); Monocytes % (A) 5 %; Neutrophils # (A) 3.2 k/uL (1.3-7.7); Neutrophils % (A) 64 %; Platelet Count 148 k/uL (150-450); RBC 4.57 m/uL (4.30-5.90); RDW 14.4 % (11.5-15.5); WBC 4.9 k/uL (3.8-10.6)
[2018-11-04 12:25] LABS: Calcium 9.2 mg/dL (8.4-10.2); Potassium 4.3 mmol/L (3.5-5.1)
[2018-11-05] MEDS: PANTOPRAZOLE 40 MG TABLET PO SCH (06:38)
[2018-11-05] MEDS: DEXTROSE 5%-0.45% NACL 1,000 ML IV SCH (06:40)
[2018-11-05] MEDS: ASPIRIN 325 MG TAB PO SCH (08:48)
[2018-11-05] MEDS: METOPROLOL TARTRATE 25 MG TAB PO SCH (08:48)
[2018-11-05] MEDS: ATORVASTATIN 40 MG TAB PO SCH (08:48)
[2018-11-05] MEDS: amLODIPine 10 MG TAB PO SCH (08:48)
[2018-11-05] MEDS: ISOSORBIDE MONONITRATE ER 30 MG TAB.ER.24H PO SCH (08:48)
[2018-11-05 11:52] VITALS: BP 125/69; PULSE 48; TEMP 97.3
--- NOTE | 2018-11-05 12:07 | P.PN ---
Subjective Progress Note Date: 11/05/18 This is a pleasant 77-year-old gentleman who sees Dr. RERE Arroyo in the office on regular basis with a past medical history significant for coronary artery disease and status post coronary artery bypass grafting with MILLER to LAD, status post aortic valve replacement, mitral valve repair, as well as multiple comorbid conditions, presented to the hospital complaining of chest discomfort. He was in his usual state of health until last night when he was sleeping and the chest discomfort woke him up from sleep. Its a dull kind of discomfort, in the mid of the chest, without any radiation, and without any associated symptoms. The patient was ruled in for acute coronary syndrome. The troponin came in to be slightly abnormal. A similar presentation was in 2015 when a heart catheterization was performed at that point and revealed patent MILLER to LAD without any evidence of any obstructive coronary artery disease. Beside that similar presentation was June 2018 when he was in [place] and presented with chest discomfort and underwent a heart catheterization as well and he was told that no need for stent at that point. 11/05/2018 Patient was seen and examined this morning, denies any further chest discomfort. From cardiology's perspective, we will continue current medical regime. Echocardiogram with Doppler study revealed a normal left ventricular systolic function. Objective - Vital Signs Vital signs: Vital Signs Temp 97.3 F L 11/05/18 11:51 Pulse 48 L 11/05/18 11:51 Resp 18 11/05/18 11:51 BP 125/69 11/05/18 11:51 Pulse Ox 96 11/05/18 11:51 Intake & Output 11/04/18 11/05/18 11/05/18 18:59 06:59 18:59 Intake Total 1260 230 240 Output Total 1350 400 Balance -90 230 -160 Weight 99 kg 99 kg Intake: Intake, IV Titration 650 Amount Dextrose 5%-0.45% NaCl 1, 650 000 ml @ 50 mls/hr IV . Q20H [facility] Rx#:[id number] Oral 610 230 240 Output: Urine 1350 400 Other: Voiding Method Toilet # Voids 1 2 - Exam PHYSICAL EXAMINATION: GENERAL: 77-year-old gentleman in no acute distress at the time of my examination HEENT: Head is atraumatic, normocephalic. Pupils equal, round. Sclera anicteric. Conjunctiva are clear. Mucous membranes of the mouth are moist. Neck is supple. There is no elevated jugular venous pressure. No carotid bruit is heard. HEART EXAMINATION: Heart S1 S2 1 systolic murmur is heard CHEST EXAMINATION: Lungs are clear to auscultation and precussion. No chest wall tenderness is noted on palpation or with deep breathing. ABDOMEN: Soft, nontender. Bowel sounds are heard. No organomegaly noted. EXTREMITIES: 2+ peripheral pulses with no evidence of peripheral edema and no calf tenderness noted. NEUROLOGIC patient is awake, alert and oriented 3. . - Labs CBC & Chem 7: 11/04/18 11:33 11/04/18 11:33 Labs: Abnormal Lab Results - Last 24 Hours (Table) 11/04/18 11/04/18 Range/Units 11:33 11:33 Plt Count 148 L (150-450) k/uL BUN 21 H (9-20) mg/dL Creatinine 1.29 H (0.66-1.25) mg/dL Glucose 107 H (74-99) mg/dL Assessment and Plan Plan: Assessment #1 atypical chest discomfort #2 mildly abnormal cardiac enzymes #3 CAD and prior CABG #4 status post aortic valve replacement #5 status post mitral valve repair Plan We will review the echocardiogram with Doppler study. If there is no significant change noted, patient may be able to be discharged home from our perspective, we will make him a follow-up appointment to see Dr. RERE Arroyo in the office post discharge. DNP note has been reviewed, I agree with a documented findings and plan of care. Patient was seen and examined.
--- NOTE | 2018-11-05 12:28 | P.GSCN ---
History of Present Illness Consult date: 11/05/18 History of present illness: the patient is a pleasant 77-year-old gentleman known to me for urinary tract issues who is in the hospital with atypical chest pain. He has been evaluated and cleared by cardiology. He had a computed tomography scan of the abdomen that identifies a 15 mm left lower pole stone without obstruction.the patient for the last 3 weeks has been having intermittent back discomfort. It initially started on the right has been on the left as well as both sides. It is not colicky in nature. His pain that is more notable when he is active. The patient is normally very physically active by going to the gym. He also works in his garage on a regular basis. He wonders whether this pain may have began because of increased work activity on the cement pad in his garage. He has not had infection. He has not had gross hematuria. The computed tomography scan identified the left lower pole stone that has obviously been there for some time. Review of Systems All systems: negative (per noted in HPI) Past Medical History Past Medical History: Coronary Artery Disease (CAD), Chest Pain / Angina, CVA/TIA, Hyperlipidemia, Hypertension, Osteoarthritis (OA), Renal Disease Additional Past Medical History / Comment(s): Nephrolithiasis, hematuria, mild renal dysfunction-Dr. Rivera managing, 08/2015 TIA, History of Any Multi-Drug Resistant Organisms: None Reported Past Surgical History: Cardiac Valve Replacement, Coronary Bypass/CABG, Heart Catheterization, Orthopedic Surgery, Tonsillectomy Additional Past Surgical History / Comment(s): 01/2016 penile implant, 08/2015 cardiac cath with no intervention, 2007 mitral/aortic valve replacement with 2 vessel bypass, cystoscopy with stone extraction, lumbar disc sx, colonoscopy, R hand index finger amputation, sinus surgery. Past Anesthesia/Blood Transfusion Reactions: No Reported Reaction Past Psychological History: No Psychological Hx Reported Smoking Status: Never smoker Past Alcohol Use History: None Reported Past Drug Use History: None Reported - Past Family History Father Family Medical History: CVA/TIA Mother Family Medical History: Cancer, Congestive Heart Failure (CHF) Additional Family Medical History / Comment(s): Mother had colon cancer. Medications and Allergies Home Medications Medication Instructions Recorded Confirmed Type Atorvastatin Calcium [Lipitor] 40 mg PO DAILY 01/11/14 11/02/18 History Aspirin EC [Ecotrin Low Dose] 81 mg PO DAILY 01/23/16 11/02/18 History Enalapril [Vasotec] 20 mg PO DAILY 11/02/18 11/02/18 History Metoprolol Tartrate 25 mg PO DAILY 11/02/18 11/02/18 History amLODIPine [Norvasc] 10 mg PO DAILY 11/02/18 11/02/18 History Isosorbide Mononitrate ER [Imdur] 30 mg PO DAILY #90 tab 11/03/18 Rx Allergies Allergy/AdvReac Type Severity Reaction Status Date / Time No Known Allergies Allergy Verified 11/02/18 07:40 Surgical - Exam Vital Signs Temp Pulse Resp BP Pulse Ox 97.5 F L 69 16 167/90 98 11/02/18 02:55 11/02/18 02:55 11/02/18 02:55 11/02/18 02:55 11/02/18 02:55 - General well developed, well nourished, no distress - Eyes PERRL - ENT no hearing loss - Neck trachea midline - Respiratory normal expansion, normal respiratory effort - Cardiovascular Rhythm: regular - Abdomen Abdomen: soft, non tender - Genitourinary normal penis with no external lesions, testicles present - Integumentary no rash, no growths - Neurologic normal coordination, normal sensation - Musculoskeletal normal posture - Psychiatric oriented to time, oriented to person, oriented to place, speech is normal, memory intact Results - Labs 11/04/18 11:33 11/04/18 11:33 Abnormal Lab Results - Last 24 Hours (Table) 11/04/18 Range/Units 11:33 BUN 21 H (9-20) mg/dL Creatinine 1.29 H (0.66-1.25) mg/dL Glucose 107 H (74-99) mg/dL Diabetes panel 11/04/18 Range/Units 11:33 Sodium 139 (137-145) mmol/L Potassium 4.3 (3.5-5.1) mmol/L Chloride 104 (98-107) mmol/L Carbon Dioxide 27 (22-30) mmol/L BUN 21 H (9-20) mg/dL Creatinine 1.29 H (0.66-1.25) mg/dL Glucose 107 H (74-99) mg/dL Calcium 9.2 (8.4-10.2) mg/dL Calcium panel 05/05/19 Range/Units 11:33 Calcium 9.2 (8.4-10.2) mg/dL Pituitary panel 11/04/18 Range/Units 11:33 Sodium 139 (137-145) mmol/L Potassium 4.3 (3.5-5.1) mmol/L Chloride 104 (98-107) mmol/L Carbon Dioxide 27 (22-30) mmol/L BUN 21 H (9-20) mg/dL Creatinine 1.29 H (0.66-1.25) mg/dL Glucose 107 H (74-99) mg/dL Calcium 9.2 (8.4-10.2) mg/dL Adrenal panel 11/04/18 Range/Units 11:33 Sodium 139 (137-145) mmol/L Potassium 4.3 (3.5-5.1) mmol/L Chloride 104 (98-107) mmol/L Carbon Dioxide 27 (22-30) mmol/L BUN 21 H (9-20) mg/dL Creatinine 1.29 H (0.66-1.25) mg/dL Glucose 107 H (74-99) mg/dL Calcium 9.2 (8.4-10.2) mg/dL - Imaging CT scan - abdomen: report reviewed, image reviewed CT scan - pelvis: report reviewed, image reviewed Assessment and Plan Assessment: impression: Left renal stone, lower pole, 15 mm. Back pain, musculoskeletal versus kidney stone. Atypical chest pain Recommendations: Question is whether the stone is giving him the back pain level of atypical chest pain. Further discussion makes it sounds like the back pain is non-urologic unfortunately however with a stone never known to the stone was removed. I would like to see the patient again in the office in a week or 2 to review the x-ray and his pain now that we've had a chance to discuss this. We'll then decide whether we want to do anything with the stone. I did discuss shockwave and percutaneous surgical procedures.
--- NOTE | 2018-11-05 14:00 | P.DS ---
Providers Date of admission: 11/02/18 04:36 Attending physician: Salvatore Haile Consults: 11/02/18 04:33 Consult Physician Urgent Consulting Provider: [facility] Consult Reason/Comments: nstemi Do you want consulting provider notified?: Yes, Notify in am 11/04/18 22:11 Consult Physician Routine Consulting Provider: Timothy Solomon Reason/Comments: renal stone, with renal colic Do you want consulting provider notified?: Yes Primary care physician: [facility] Course: Diagnoses: Possible Non-STEMI, her dosage evaluated patient and to continue with medical management. Normal LV function. Cardiology thinks this is atypical chest pain Bilateral nephrolithiasis, nonobstructing. Flank pain secondary to above History of thoracic aortic aneurysm. Patient follow-up with his head grower Dr. Arroyo every 6 months. Patient instructed to follow up with Dr. Arroyo in one week and he agrees. History of coronary artery disease, status post CABG History of mitral and aortic valve replacement Chronic kidney disease, stage III CVA/TIA Hyperlipidemia Essential hypertension History of osteoarthritis History of nephrolithiasis and hematuria History of lumbar disc disease Hospital course: This is a pleasant 77 years old male with past medical history of coronary artery disease, status post CABG, CVA/TIA, hyperlipidemia, hypertension, osteoarthritis, nephrolithiasis, hematuria, mild renal dysfunction that he follows with Dr. Rivera, status post mitral/aortic valve replacement in 2007, lumbar disc disease. He is a patient of Dr. Dominique. Presents because of chest pain of one-day duration. His troponins are elevated at 0.05 and 0.05. Patient has been evaluated by head grower. Echocardiogram shows normal left ventricular function. Creatinine was 1.4, came down to 1.2. Appeals Nurse recommended no surgical intervention or procedure and to continue with medical management. Patient showed interval improvement in his chest pain improved. No dyspnea. No change in urine or bowel habits. He is tolerating diet well. No nausea vomiting. However patient developed left flank pain, CAT scan of the abdomen shows bilateral kidney stones, larger on the left side, about 1.5 cm. Neurologist examined the patient and cleared him for discharge and to follow up with him in the office as an outpatient in 1 or 2 weeks. Patient was cleared for discharge by both cardiology and neurology team. Patient himself felt is ready to go home. Problems and management plan was discussed with the patient and he verbalized understanding and acceptance Patient was found stable and can be discharged home however he needs follow-up as an outpatient. Patient agrees with the appointments made for him with his PCP and he said he will follow-up. Also patient was instructed to follow up with his head grower Dr. Arroyo and his urologist, staff contacted the office and they going to call the patient to make an appointment from the office. Patient also was instructed to follow up regarding his thoracic aortic aneurysm with his head grower Dr. Arroyo who recommended that he follows with her every 6 months. I discussed the case with his PCP Dr. Lemus, including although above and he kindly took note of them including the need to see his head grower and urologist. Gen: patient is a AAOx3, no distress CVS: S1-S2, RRR, no murmur Lungs: B/L CTA, no wheezing Abdomen: soft, no distention, no tenderness, positive bowel sounds Extremity: no leg edema or induration Time spent more than 35 minutes Patient Condition at Discharge: Serious Plan - Discharge Summary Discharge Rx Participant: Yes New Discharge Prescriptions: New Isosorbide Mononitrate ER [Imdur] 30 mg PO DAILY #90 tab Nitroglycerin Sl Tabs [Nitrostat] 0.4 mg SUBLINGUAL Q5M PRN #20 tab PRN Reason: Chest Pain Pantoprazole [Protonix] 40 mg PO AC-BRKFST #[address] tablet.[address] Chowdhury Atorvastatin Calcium [Lipitor] 40 mg PO DAILY Aspirin EC [Ecotrin Low Dose] 81 mg PO DAILY amLODIPine [Norvasc] 10 mg PO DAILY Metoprolol Tartrate 25 mg PO DAILY Discontinued Enalapril [Vasotec] 20 mg PO DAILY Discharge Medication List Atorvastatin Calcium [Lipitor] 40 mg PO DAILY 01/11/14 [History] Aspirin EC [Ecotrin Low Dose] 81 mg PO DAILY 01/23/16 [History] Metoprolol Tartrate 25 mg PO DAILY 11/02/18 [History] amLODIPine [Norvasc] 10 mg PO DAILY 11/02/18 [History] Isosorbide Mononitrate ER [Imdur] 30 mg PO DAILY #90 tab 11/03/18 [Rx] Nitroglycerin Sl Tabs [Nitrostat] 0.4 mg SUBLINGUAL Q5M PRN #20 tab 11/05/18 [Rx] Pantoprazole [Protonix] 40 mg PO TAVIA-BRKFST #30 tablet. 11/05/18 [Rx] Follow up Appointment(s)/Referral(s): Coy Arroyo MD [STAFF PHYSICIAN] - 1 Week (Office will call with follow up appointment. ) Ranjith Minaya MD [Primary Care Provider] - 11/07/18 9:30 am (With Romi ROCHA.) Timothy Solomon MD [STAFF PHYSICIAN] - 1 Week (Office will call with follow up appointment.) Patient Instructions/Handouts: Chest Pain (DC), Kidney Stones (DC) Activity/Diet/Wound Care/Special Instructions: Patient is cleared from cardiology standpoint, after abdominal CT Discharge Disposition: HOME SELF-CARE
== END 2018-11-05 15:04 | disposition home or self-care (01) | DRG 282 ==
LOC: EC 02:52 → 3SCARD 04:36
PROVIDERS: ADMIT Internal Medicine; ATTEND Internal Medicine
DX: I21.4 Non-ST elevation (NSTEMI) myocardial infarction (principal); N18.3 Chronic kidney disease, stage 3 (moderate); E78.5 Hyperlipidemia, unspecified; R00.1 Bradycardia, unspecified; M51.9 Unspecified thoracic, thoracolumbar and lumbosacral intervertebral disc disorder; I71.4 Abdominal aortic aneurysm, without rupture; I12.9 Hypertensive chronic kidney disease with stage 1 through stage 4 chronic kidney disease, or unspecified chronic kidney disease; I44.0 Atrioventricular block, first degree; N20.0 Calculus of kidney; I25.10 Atherosclerotic heart disease of native coronary artery without angina pectoris; M19.90 Unspecified osteoarthritis, unspecified site; Z79.82 Long term (current) use of aspirin; Z79.899 Other long term (current) drug therapy; Z86.73 Personal history of transient ischemic attack (TIA), and cerebral infarction without residual deficits; Z95.1 Presence of aortocoronary bypass graft; Z95.2 Presence of prosthetic heart valve; Z98.890 Other specified postprocedural states; Z96.0 Presence of urogenital implants; Z87.442 Personal history of urinary calculi; Z89.021 Acquired absence of right finger(s); Z82.49 Family history of ischemic heart disease and other diseases of the circulatory system; Z80.0 Family history of malignant neoplasm of digestive organs; Z82.3 Family history of stroke
CPT/HCPCS: 36415; 71046; 74176; 80048; 80053; 80061; 82272; 83735; 83880; 84484; 85025; 85610; 85730; 93005; 93306; 94760; 94762; 96365; 96366; 96376; 99285

== ENCOUNTER 2019-04-10 09:15 | Day surgery (SDC) | payer MEDICARE ==
[2019-04-08 08:34] VITALS: BMI 29.1
[~2019-04-10 09:15] MED LIST: LACTATED RINGERS 1,000 ML IV SCH; LIDOCAINE 1% 20 ML VIAL (10MG/ML) FOR IV START INTRADERMA PRN; ONDANSETRON 4 MG/2 ML VIAL IVP PRN; TETRACAINE 0.5% OPHTH (PF) DROPS 4 ML BTL OP ONE
[2019-04-10 10:03] VITALS: TEMP 97.8
[2019-04-10] MEDS: CYCLOPENTOLATE 1% OPHTH SOLN 2 ML BTL OP ONE ×3 (10:03→10:15)
[2019-04-10] MEDS ORDERED: LACTATED RINGERS 1,000 ML IV ONE (10:06)
[2019-04-10] MEDS: PHENYLEPHRINE 2.5% OPHTH DRP 2ML OP NR ×3 (10:06→10:18)
[2019-04-10] MEDS ORDERED: fentaNYL (PF) 50 MCG/ML 2 ML AMP ONE (10:41)
[2019-04-10] MEDS ORDERED: BALANCED SALT IRRIG SOLN COMB2 15 ML IRRIG.SOLN IRRIGATION ONE ×2 (10:44→10:54)
[2019-04-10] MEDS ORDERED: HYALURONATE SODIUM INTRAOCULAR 1 EACH SYRINGE (12MG/ML) INTRAOCULA ONE ×2 (10:44→10:53)
[2019-04-10] MEDS ORDERED: LIDOCAINE 1% (PF) 10MG/ML VIAL MISCELLANE ONE ×2 (10:45→10:54)
[2019-04-10] MEDS: TIMOLOL 0.5% OPHTH DROPS 5 ML BTL OP ONE ×2 (10:47→11:00)
[2019-04-10] MEDS ORDERED: EPINEPHrine (PF) 0.3 ML in BALANCED SALT IRRIG SOLN COMB2 500 ML IRRIGATION ONE ×4 (10:47)
[2019-04-10] MEDS: MOXIFLOXACIN HCL 0.5% DROPS 3 ML BTL OP ONE ×2 (10:48→11:00)
--- NOTE | 2019-04-10 11:08 | P.OP ---
Date of Procedure: 04/10/19 Preoperative Diagnosis: NS Postoperative Diagnosis: same Procedure(s) Performed: PIOL, OD Implants: PCB00 18.50 Anesthesia: MAC Surgeon: Jose Angel Singh Estimated Blood Loss (ml): 0 Pathology: none sent Condition: stable Disposition: same day Indications for Procedure: blurry vision Operative Findings: no complications
[2019-04-10 11:40] VITALS: BP 149/71; PULSE 50; RESP 16
--- NOTE | 2019-04-10 23:37 | OP ---
OPERATIVE REPORT DATE OF SURGERY: April 10, 2019. PRODUCT SUPPORT TECHNICIAN: PREOPERATIVE DIAGNOSIS: Nuclear sclerosis. POSTOPERATIVE DIAGNOSIS: Nuclear sclerosis. OPERATION: Clear cornea phacoemulsification of cataract OD, right eye. ESTIMATED BLOOD LOSS: Zero. SPECIMEN TAKEN: None. NARRATIVE: After obtaining the appropriate consent, the patient was brought to the Operating Room where the patient was placed under cardiac monitoring and prepped and draped in the usual sterile manner. At the 11 o'clock position a 15 degree super sharp blade was used to create a paracentesis followed by instillation of 1% Xylocaine MPF 50:50 mix with BSS into the anterior chamber. This was followed by Amvisc to stabilize the anterior chamber. At 9 o'clock position a self-sealing corneal flap incision was created using 2.8 mm more keratome. A cystatome was used to initiate a continuous tear capsulorrhexis which was completed with the Utrata forceps. A Binkhorst cannula was used to hydrodissect the lens nucleus followed by hydrodelineation. Phacoemulsification of the lens was performed utilizing phacochop in 11.09 seconds at 11% power. The remaining cortical material was removed using the irrigation aspiration mode followed by additional 1% Xylocaine MPF into the anterior chamber followed by viscoelastic to stabilize the capsular bag. A Ramon and Ramon PCB 00 18.5 diopter posterior chamber lens was placed into the capsular bag without difficulty. The remaining viscoelastic material was removed from the anterior chamber with the irrigation/aspiration. Balanced salt solution was used to normalize the intraocular pressure. The incision was checked for watertight integrity. The patient then received two drops of 0.5% timolol followed by two drops Vigamox, was lightly patched and shielded in the usual manner. There were no complications from the procedure. The patient tolerated the procedure well and was returned to recovery in good condition. MMODL / IJN: [id number] /
== END 2019-04-10 12:01 | disposition home or self-care (01) ==
LOC: OR 09:15
PROVIDERS: ATTEND Ophthalmology
DX: H25.13 Age-related nuclear cataract, bilateral (principal); H35.372 Puckering of macula, left eye; I10 Essential (primary) hypertension; I25.10 Atherosclerotic heart disease of native coronary artery without angina pectoris; E78.5 Hyperlipidemia, unspecified; H91.90 Unspecified hearing loss, unspecified ear; Z79.82 Long term (current) use of aspirin; Z79.899 Other long term (current) drug therapy; Z97.4 Presence of external hearing-aid; Z95.1 Presence of aortocoronary bypass graft; Z98.890 Other specified postprocedural states; Z87.442 Personal history of urinary calculi; Z86.73 Personal history of transient ischemic attack (TIA), and cerebral infarction without residual deficits; Z96.0 Presence of urogenital implants; Z82.49 Family history of ischemic heart disease and other diseases of the circulatory system
CPT/HCPCS: 66984; C1780; J0171; J3010; J2001

== ENCOUNTER 2019-05-15 10:58 | Day surgery (SDC) | payer MEDICARE ==
[2019-05-13 13:21] VITALS: BMI 29.5
[~2019-05-15 10:58] MED LIST changes: +MOXIFLOXACIN HCL 0.5% DROPS 3 ML BTL OP ONE; -ONDANSETRON 4 MG/2 ML VIAL IVP PRN; +TETRACAINE 0.5% OPHTH (PF) DROPS 4 ML BTL OP NR; -TETRACAINE 0.5% OPHTH (PF) DROPS 4 ML BTL OP ONE; +TIMOLOL 0.5% OPHTH DROPS 5 ML BTL OP ONE
[2019-05-15 11:51] VITALS: TEMP 97.4
[2019-05-15] MEDS: CYCLOPENTOLATE 1% OPHTH SOLN 2 ML BTL OP NR ×3 (11:52→12:07)
[2019-05-15] MEDS: PHENYLEPHRINE 2.5% OPHTH DRP 2ML OP NR ×3 (11:55→12:09)
[2019-05-15] MEDS ORDERED: fentaNYL (PF) 50 MCG/ML 2 ML AMP ONE (13:31)
[2019-05-15] MEDS ORDERED: MIDAZOLAM 2 MG/2 ML VIAL ONE (13:31)
[2019-05-15] MEDS ORDERED: BALANCED SALT IRRIG SOLN COMB2 15 ML IRRIG.SOLN IRRIGATION ONE (13:36)
[2019-05-15] MEDS ORDERED: HYALURONATE SODIUM INTRAOCULAR 1 EACH SYRINGE (12MG/ML) INTRAOCULA ONE ×2 (13:36)
[2019-05-15] MEDS ORDERED: LIDOCAINE 1% (PF) 10MG/ML VIAL MISCELLANE ONE (13:37)
[2019-05-15] MEDS ORDERED: EPINEPHrine (PF) 0.3 ML in BALANCED SALT IRRIG SOLN COMB2 500 ML IRRIGATION ONE (13:39)
--- NOTE | 2019-05-15 14:05 | P.OP ---
Date of Procedure: 05/15/19 Preoperative Diagnosis: NS Postoperative Diagnosis: same Procedure(s) Performed: PIOL, OS Implants: PCB00 17.50 Anesthesia: MAC Surgeon: Jose Angel Singh Estimated Blood Loss (ml): 0 Pathology: none sent Condition: stable Disposition: same day Indications for Procedure: blurry vision Operative Findings: no complications
[2019-05-15 14:34] VITALS: BP 146/87; PULSE 51; RESP 17
--- NOTE | 2019-05-16 06:17 | OP ---
OPERATIVE REPORT DATE OF SURGERY: 05/15/2019. SURGEON: Jose Angel Singh MD PREOPERATIVE DIAGNOSIS: Nuclear sclerosis. POSTOPERATIVE DIAGNOSIS: Nuclear sclerosis. OPERATION: Phacoemulsification of cataract and intraocular lens implant of the left eye. ESTIMATED BLOOD LOSS: Zero. SPECIMEN TAKEN: None. NARRATIVE: After obtaining the appropriate consent, the patient was brought to the Operating Room where the patient was placed under cardiac monitoring and prepped and draped in the usual sterile manner. At the 5 o'clock position a 15 degree super sharp blade was used to create a paracentesis followed by instillation of 1% Xylocaine MPF 50:50 mix with BSS into the anterior chamber. This was followed by viscoelastic Amvisc to stabilize the anterior chamber. At the 3 o'clock position a self-sealing corneal flap incision was created using 2.8 mm more keratome. A cystotome was used to initiate a continuous tear capsulorrhexis which was completed with the Utrata forceps. A Binkhorst cannula was used to hydrodissect the lens nucleus followed by hydrodelineation. Phacoemulsification of the lens was performed utilizing phaco chop in 14.49 seconds at 9% power. The remaining cortical material was removed using the irrigation aspiration mode followed by additional 1% Xylocaine MPF into the anterior chamber followed by viscoelastic to stabilize the capsular bag. An ABEBA PCB00, 17.5 diopters posterior chamber lens was placed into the capsular bag without difficulty. The remaining viscoelastic material was removed from the anterior chamber with the irrigation/aspiration. Balanced salt solution was used to normalize the intraocular pressure. The incision was checked for watertight integrity. The patient then received two drops of 0.5% timolol followed by two drops Vigamox, was lightly patched and shielded in the usual manner. There were no complications from the procedure. The patient tolerated the procedure well and was returned to recovery in good condition. MMODL / IJN: [id number] /
== END 2019-05-15 15:27 | disposition home or self-care (01) ==
LOC: OR 10:58
PROVIDERS: ATTEND Ophthalmology
DX: H25.12 Age-related nuclear cataract, left eye (principal); H35.372 Puckering of macula, left eye; Z96.1 Presence of intraocular lens; I25.10 Atherosclerotic heart disease of native coronary artery without angina pectoris; I10 Essential (primary) hypertension; E78.5 Hyperlipidemia, unspecified; I08.3 Combined rheumatic disorders of mitral, aortic and tricuspid valves; M19.90 Unspecified osteoarthritis, unspecified site; Z86.73 Personal history of transient ischemic attack (TIA), and cerebral infarction without residual deficits; Z95.2 Presence of prosthetic heart valve; Z95.1 Presence of aortocoronary bypass graft; Z97.3 Presence of spectacles and contact lenses; Z80.9 Family history of malignant neoplasm, unspecified; Z82.49 Family history of ischemic heart disease and other diseases of the circulatory system; Z79.82 Long term (current) use of aspirin; Z79.899 Other long term (current) drug therapy
CPT/HCPCS: 66984; C1780; J2250; J0171; J3010; J2001

== ENCOUNTER → 2020-05-07 | Outpatient (CLI) | payer MEDICARE ==
--- NOTE | 2020-05-07 17:02 | CT ---
EXAMINATION TYPE: CT angio chest DATE OF EXAM: 05/07/2020 COMPARISON: 05/18/2016 HISTORY: 79-year-old male I71.2, Thoracic aneurysm without rupture F/U TECHNIQUE: Contiguous axial scanning of the chest performed with IV Contrast, patient injected with 8 0 mL of Isovue 370. Delayed coronal/sagittal reconstructions performed. Radiographic reconstructions generated on a dedicated independent workstation. CT DLP: 245.2 mGycm Automated exposure control for dose reduction was used. FINDINGS: Median sternotomy wires are present with prosthetic aortic valve. Heart upper limits of normal in siz e. Scattered three-vessel coronary artery calcifications are present. - Aortic root is ectatic at 3.9 cm versus 4.2 cm, previously. - Ascending aorta aneurysmal 4.3 cm versus 4.4 cm, previously. - Conventional arch vessel branching anatomy with mild atherosclerotic arch calcifications. - Distal arch mildly aneurysmal at 3.5 cm versus 3.6 cm, previously. - Scattered mild to moderate atherosclerotic calcifications descending thoracic aorta. - Mid descending thoracic aorta mildly aneurysmal at 3.0 cm, unchanged. - Distal descending thoracic aorta is ectatic at 2.7 cm, unchanged. Stable 4 mm peripheral right upper lobe pulmonary nodule, axial image 12. Stable 4 to 5 mm right mid lung pulmonary nodules, axial image 33 and 35. Stable elongated 6 mm right middle lobe pulmonary nodule, axial image 45. Stable 5 mm posterior right basilar pulmonary nodule, axial image 45. Stable 5 mm left midlung pulmonary nodule, axial image 28. Stable borderline and mildly enlarged mediastinal lymph nodes measuring up to 1.1 cm. Likely reactive /post inflammatory. Mild strandy and dependent atelectasis in the lower lungs. No consolidation or pleural effusion. Visualized upper abdomen shows moderate stool. Bones: Anterior endplate spondylosis throughout the mid to lower thoracic spine. Accentuated upper th oracic kyphosis. IMPRESSION: 1. ASCENDING AORTIC ANEURYSM STABLE AT 4.3 CM AND UPPER DESCENDING THORACIC AORTIC ANEURYSM AT 3.5 CM . 2. SCATTERED 6 MM AND SMALLER PULMONARY NODULES UNCHANGED BACK TO 2016 COMPATIBLE WITH A BENIGN ETIOL OGY. 3. MILD STRANDY AND DEPENDENT ATELECTASIS IN THE LOWER LUNGS.
== END | disposition home or self-care (01) ==
LOC: RADCTMAIN 15:19
PROVIDERS: ATTEND Internal Medicine Interventional Cardiology
DX: I71.2 Thoracic aortic aneurysm, without rupture (principal); R91.8 Other nonspecific abnormal finding of lung field; J98.11 Atelectasis
CPT/HCPCS: 82565; 84520; 71275; 36415; Q9967